=== PATIENT | female | born 1995 | race African-American/Black ===

== ENCOUNTER 2016-07-24 05:10 | Emergency (ER) | payer BC, OTHER ==
[~2016-07-24] VITALS: Ht 188 cm; Wt 83.5 kg
[2016-07-24 07:20] VITALS: BP 148/69
[2016-07-24] MEDS: KETOROLAC TROMETH 60MG/2ML VIAL IM ONE (07:40)
[2016-07-24] MEDS: METHOCARBAMOL 500 MG TAB PO ONE (07:40)
== END 2016-07-24 09:06 | disposition home or self-care (01) ==
LOC: EDBD 05:10 → ER 05:10
DX: S16.1XXA Strain of muscle, fascia and tendon at neck level, initial encounter (principal); Z88.1 Allergy status to other antibiotic agents; R51 Headache; V43.52XA Car driver injured in collision with other type car in traffic accident, initial encounter; Y93.89 Activity, other specified; Y99.8 Other external cause status; Y92.89 Other specified places as the place of occurrence of the external cause
CPT/HCPCS: 70450; 72125; 96372; 99284; J1885